=== PATIENT | female | born 2000 | race African-American/Black ===

== ENCOUNTER → 2018-10-23 | Outpatient (CLI) | payer MEDICAID ==
[2018-10-23 21:05] LABS: CHLAM PCR NOT DETECTED (NOT DETECT); GON PCR NOT DETECTED (NOT DETECT)
== END ==
LOC: LAB 19:22
PROVIDERS: ATTEND Nurse Practitioner Acute Care
DX: R30.0 Dysuria (principal)
CPT/HCPCS: 87086; 87088; 87186; 87491; 87591

== ENCOUNTER 2018-11-04 12:32 | Emergency (ER) | payer MEDICAID ==
[2018-11-04 12:37] VITALS: BP 122/72
--- NOTE | 2018-11-04 12:54 | ER Document Report ---
ED Medical Screen (RME) - General Chief Complaint: Anxiety Stated Complaint: POSSIBLE SEIZURE Time Seen by Provider: 11/04/18 12:48 Notes: Patient says that she thinks she may have had a seizure a couple of days ago. She says she was laying on the bed, awake, and began to feel "weird" and then started with twitching and jerking and then was jerking all over her body. Her male friend was in the shower and had gotten out of the shower and observe the end of what happened, but patient did not bring him with her. Patient has never had a seizure before. Yesterday, patient felt "panicky" but did not have any more of these episodes. Denies any headache. Denies any stiff neck. Denies any loss of control of bladder or bowels. Denies chewing her tongue. She says that she had not eaten any food or had any sleep for 2 days prior to this jerking episode. Patient was incarcerated on Tuesday and got out after 2 days, on , and then this event occurred. Patient says that she never lost consciousness during the jerking and was awake the entire time. Also she was able to carry on a conversation with her friend while having this jerking episode. Patient has ADHD and is supposed to take it daily, but had not been taking it f or 2 months until she took 1 pill Tuesday before she was incarcerated. She has not had any since then denies taking any other medications and denies any illicit drugs such as cocaine or methamphetamine. She wants to know if we have ome of those machines that we can measurement superintendent to her brain to tell if she has had a seizure. Informed her that we do not have them available to us in the emergency department. TRAVEL OUTSIDE OF THE [place] IN LAST 30 DAYS: No - Related Data Allergies/Adverse Reactions: No Known Allergies Allergy (Verified 08/03/18 13:43) Past Medical History - Immunizations Immunizations up to date: Yes Hx Diphtheria, Pertussis, Tetanus Vaccination: Yes Physical Exam - Vital signs Vitals: Temp Pulse Resp BP Pulse Ox 97.7 F 87 18 122/72 100 11/04/18 12:36 11/04/18 12:36 11/04/18 12:36 11/04/18 12:36 11/04/18 12:36 Course - Vital Signs Vital signs: Temp Pulse Resp BP Pulse Ox 97.7 F 87 18 122/72 100 11/04/18 12:36 11/04/18 12:36 11/04/18 12:36 11/04/18 12:36 11/04/18 12:36 Doctor's Discharge - Discharge Instructions: Anxiety ([facility]) Referrals: CÉSAR FERRER DO [Primary Care Provider] - Follow up as needed
--- NOTE | 2018-11-04 13:14 | ER Document Report ---
ED General - General Chief Complaint: Anxiety Stated Complaint: POSSIBLE SEIZURE Time Seen by Provider: 11/04/18 12:48 Mode of Arrival: Ambulatory Information source: Patient Notes: 18-year-old female presents the emergency department with complaints of possible anxiety versus a seizure that occurred a few days ago. Patient states that she was laying down on her bed to lying on her left side when she began feeling anxious and had a "weird" sensation in her feet. She states that it felt like pinpricks. She states that this sensation moved from her feet up her entire body. She states that she then began twitching all over her body. She was awake and conscious for this entire event. She states that her friend was in the shower when this started but he did observe what happened towards the end. Patient states that she was carrying on a complete conversation with her friend during the jerking episode. Patient denies a history of seizures. She states that she had not eaten any food or had sleep 2 days prior to this episode. She was incarcerated on Tuesday and got out 2 days afterwards. She states that this is when the event occurred. Patient denies any tongue biting, bowel or bladder incontinence. She admits to having a lot of stress in her life. Unsure if what she was experiencing was a panic attack. Patient states that she has used marijuana in the past but not denies any other illicit drugs. She does have a history of ADHD and occasionally takes Adderall. She states that she took a pill prior to incarceration. TRAVEL OUTSIDE OF THE [place] IN LAST 30 DAYS: No - HPI Onset: Last week Onset/Duration: Sudden Quality of pain: No pain Severity: None Pain Level: Denies Associated symptoms: None Exacerbated by: Denies Relieved by: Denies Similar symptoms previously: No Recently seen / treated by doctor: No - Related Data Allergies/Adverse Reactions: No Known Allergies Allergy (Verified 08/03/18 13:43) Past Medical History - General Information source: Patient - Social History Smoking Status: Current Every Day Smoker Chew tobacco use (# tins/day): No Frequency of alcohol use: None Drug Abuse: Marijuana Family History: Reviewed & Not Pertinent Patient has suicidal ideation: No Patient has homicidal ideation: No Renal/ Medical History: Denies: Hx Peritoneal Dialysis Psychiatric Medical History: Reports: Hx Attention Deficit Hyperactivity Disorder - Immunizations Immunizations up to date: Yes Hx Diphtheria, Pertussis, Tetanus Vaccination: Yes Review of Systems - Review of Systems Constitutional: No symptoms reported EENT: No symptoms reported Cardiovascular: No symptoms reported Respiratory: No symptoms reported Gastrointestinal: No symptoms reported Genitourinary: No symptoms reported Female Genitourinary: No symptoms reported Musculoskeletal: No symptoms reported Skin: No symptoms reported Neurological/Psychological: Tremor -: Yes All other systems reviewed and negative Physical Exam - Vital signs Vitals: Temp Pulse Resp BP Pulse Ox 97.7 F 87 18 122/72 100 11/04/18 12:36 11/04/18 12:36 11/04/18 12:36 11/04/18 12:36 11/04/18 12:36 - Notes Notes: PHYSICAL EXAMINATION: GENERAL: Well-appearing, well-nourished and in no acute distress. HEAD: Atraumatic, normocephalic. EYES: Pupils equal round and reactive to light, extraocular movements intact, conjunctiva are normal. ENT: Nares patent, oropharynx clear without exudates. Moist mucous membranes. NECK: Normal range of motion, supple without lymphadenopathy LUNGS: Breath sounds clear to auscultation bilaterally and equal. No wheezes rales or rhonchi. HEART: Regular rate and rhythm without murmurs ABDOMEN: Soft, nontender, nondistended abdomen. No guarding, no rebound. No masses appreciated. Female : deferred Musculoskeletal: Normal range of motion, no pitting or edema. No cyanosis. NEUROLOGICAL: Cranial nerves grossly intact. Normal speech, normal gait. Normal sensory, motor exams PSYCH: Normal mood, normal affect. SKIN: Warm, Dry, normal turgor, no rashes or lesions noted. Course - Re-evaluation Re-evalutation: 11/04/18 14:39 Labs obtained. No acute process identified. Patient likely had a panic attack. I instructed the patient to follow-up with the primary care physician this week and to return for worsening symptoms. 11/04/18 14:42 - Vital Signs Vital signs: Temp Pulse Resp BP Pulse Ox 97.7 F 87 18 122/72 100 11/04/18 12:36 11/04/18 12:36 11/04/18 12:36 11/04/18 12:36 11/04/18 12:36 - Laboratory Result Diagrams: 11/04/18 12:57 11/04/18 12:57 Laboratory results interpreted by me: 11/04/18 11/04/18 12:57 13:45 WBC 3.1 L Absolute Neutrophils 1.5 L Urine Protein >=500 H Discharge - Discharge Clinical Impression: Panic attack Condition: Good Disposition: HOME, SELF-CARE Instructions: Anxiety ([facility]), Panic Attack ([facility]) Referrals: CÉSAR FERRER DO [NO LOCAL MD] - Follow up as needed
[2018-11-04 13:15] LABS: ABSOLUTE EOSINOPHILS # (AUTO) 0.1 10^3/uL (0.0-0.6); ABSOLUTE LYMPHOCYTES (AUTO) 1.3 10^3/uL (0.5-4.7); ABSOLUTE MONOCYTES (AUTO) 0.2 10^3/uL (0.1-1.4); ABSOLUTE NEUT (AUTO) 1.5 10^3/uL (1.7-8.2); BASOPHILS % (AUTO) 0.5 % (0-2); EOSINOPHILS % (AUTO) 1.8 % (0-6); HEMATOCRIT 38.4 % (36.0-47.0); HEMOGLOBIN 12.6 g/dL (12.0-15.5); LYMPHOCYTES % (AUTO) 42.2 % (13-45); MEAN CORPUSCULAR HEMOGLOBIN 28.2 pg (27.0-33.4); MEAN CORPUSCULAR HGB CONC 32.7 g/dL (32.0-36.0); MEAN CORPUSCULAR VOLUME 86 fl (80-97); PLATELET COUNT 209 10^3/uL (150-450); RED BLOOD COUNT 4.46 10^6/uL (3.72-5.28); RED CELL DISTRIBUTION WIDTH 13.6 % (11.5-14.0); SEGMENTED NEUTROPHILS % (AUTO) 48.5 % (42-78); TOTAL CELLS COUNTED % (AUTO) 100 %; WHITE BLOOD COUNT 3.1 10^3/uL (4.0-10.5)
[2018-11-04 13:29] LABS: ALANINE AMINOTRANSFERASE 21 U/L (9-52); ALBUMIN 4.9 g/dL (3.5-5.0); ALKALINE PHOSPHATASE 39 U/L (38-126); ANION GAP 10 (5-19); ASPARTATE AMINO TRANSFERASE 15 U/L (14-36); BILIRUBIN,DIRECT 0.2 mg/dL (0.0-0.4); BILIRUBIN,TOTAL 0.6 mg/dL (0.2-1.3); BLOOD UREA NITROGEN 11 mg/dL (7-20); CALCIUM 9.8 mg/dL (8.4-10.2); CARBON DIOXIDE 27 mmol/L (22-30); CHLORIDE 105 mmol/L (98-107); GLUCOSE 91 mg/dL (75-110); POTASSIUM 4.2 mmol/L (3.6-5.0); SODIUM 141.8 mmol/L (137-145); TOTAL PROTEIN 7.4 g/dL (6.3-8.2)
[2018-11-04 14:15] LABS: APPEARANCE,URINE SLIGHTLY-CLOUDY; BILIRUBIN,URINE NEGATIVE (NEGATIVE); COLOR,URINE YELLOW; GLUCOSE, URINE NEGATIVE (NEGATIVE); KETONES,URINE NEGATIVE (NEGATIVE); LEUKOCYTE ESTERASE,URINE NEGATIVE (NEGATIVE); NITRITE,URINE NEGATIVE (NEGATIVE); PROTEIN,URINE >=500 mg/dL (NEGATIVE); URINE SPECIFIC GRAVITY 1.022; UROBILINOGEN,URINE NEGATIVE mg/dL (<2.0)
[2018-11-04 14:29] LABS: URINE AMPHETAMINES SCREEN NEGATIVE; URINE BARBITURATES SCREEN NEGATIVE; URINE BENZODIAZEPINES SCREEN NEGATIVE; URINE COCAINE SCREEN NEGATIVE; URINE MARIJUANA (THC) SCREEN UNCONFIRMED POSITIVE; URINE METHADONE SCREEN NEGATIVE; URINE PHENCYCLIDINE SCREEN NEGATIVE
== END 2018-11-04 15:23 | disposition home or self-care (01) ==
LOC: ER 12:32 → MERGE 12:32 → ER 15:23
DX: F41.0 Panic disorder [episodic paroxysmal anxiety] (principal); F90.9 Attention-deficit hyperactivity disorder, unspecified type; R25.1 Tremor, unspecified; F17.200 Nicotine dependence, unspecified, uncomplicated; F12.10 Cannabis abuse, uncomplicated
CPT/HCPCS: 36415; 80053; 80307; 81001; 83735; 84703; 85025; 99283

== ENCOUNTER 2018-12-08 16:39 | Emergency (ER) | payer MEDICAID, OTHER ==
[2018-12-08] MEDS ORDERED: NAPROXEN 250 MG TABLET PO ONE (17:43)
--- NOTE | 2018-12-08 18:06 | ER Document Report ---
ED General - General Chief Complaint: Weakness Stated Complaint: HAND PAIN, FATIGUE Time Seen by Provider: 12/08/18 17:29 Primary Care Provider: [facility] [Provider Group] - Follow up as needed LLUVIA ALTAMIRANO MD [ACTIVE STAFF] - Follow up in 3-5 days TAMARA ALEX MD [ACTIVE STAFF] - Follow up in 3-5 days Notes: Patient is a 18-year-old female that presents to the emergency department for chief complaint of generalized fatigue, and bilateral hand pain. Patient states she is been having on and off cramping in her hands over the past several months, and seemingly becoming more frequent, she has had generalized fatigue, and some lightheadedness associated. She mainly feels the pain after using her hands for repetitive motion such as texting, playing video games, or at her work. She currently rates the pain as a 2 out of 10 describes as aching sensation in the joints of her hands. She does occasionally feel pain go up into her wrist associated with this. Denies prior history of lupus rheumatoid arthritis or other arthropathies. Previously healthy. No other complaints at this time. She denies recent fevers, chills, rashes, shortness of breath, chest pain or difficulty breathing. Past Medical History: Denies chronic medical conditions Past Surgical History: Denies surgical history Social History: Denies tobacco, alcohol or drug use. Family History: Reviewed and noncontributory for presenting illness Allergies: Reviewed, see documented allergy list. REVIEW OF SYSTEMS: Other than noted above, the 12 point review of systems was reviewed with the patient and were negative, all pertinent findings are included in the HPI. PHYSICAL EXAMINATION: Vital signs reviewed, nursing noted reviewed. GENERAL: Well-appearing, well-nourished and in no acute distress. HEAD: Atraumatic, normocephalic. EYES: Eyes appear normal, extraocular movements intact, sclera anicteric, conjunctiva are normal. ENT: nares patent, oropharynx clear without exudates. Moist mucous membranes. NECK: Normal range of motion, supple without lymphadenopathy LUNGS: Breath sounds clear to auscultation bilaterally and equal. No wheezes rales or rhonchi. HEART: Regular rate and rhythm without murmurs ABDOMEN: Soft, nontender, normoactive bowel sounds. No rebound, guarding, or rigidity. No masses appreciated. EXTREMITIES: Nontender, good range of motion, no pitting or edema. Negative Tinel's and Abbe testing bilaterally, the joints of the hands are nontender at this time, and not particularly swollen or edematous. NEUROLOGICAL: No focal neurological deficits. Moves all extremities spontaneously Motor and sensory grossly intact on exam. PSYCH: Normal mood, normal affect. SKIN: Warm, Dry, normal turgor, no rashes or lesions noted on exposed skin TRAVEL OUTSIDE OF THE [place] IN LAST 30 DAYS: No - Related Data Allergies/Adverse Reactions: No Known Allergies Allergy (Verified 12/08/18 16:45) Past Medical History - Social History Smoking Status: Unknown if Ever Smoked Family History: Reviewed & Not Pertinent Patient has suicidal ideation: No Patient has homicidal ideation: No Renal/ Medical History: Denies: Hx Peritoneal Dialysis Psychiatric Medical History: Reports: Hx Attention Deficit Hyperactivity Disor [place] - Immunizations Immunizations up to date: Yes Hx Diphtheria, Pertussis, Tetanus Vaccination: Yes Physical Exam - Vital signs Vitals: Temp Pulse Resp BP Pulse Ox 98.8 F 89 16 114/70 97 12/08/18 16:47 12/08/18 16:47 12/08/18 16:47 12/08/18 16:47 12/08/18 16:47 Course - Re-evaluation Re-evalutation: Patient seen and examined vital signs reviewed. Laboratory data and imaging were ordered as appropriate for the patient's presenting symptoms and complaint, with consideration of any critical or life threatening conditions that may be associated with their obtained history and exam as noted above. Patient was treated with naproxen 500 mg Results were reviewed when available and demonstrated unremarkable blood work, patient did have a mild leukopenia, compared with prior, not significantly changed, there was normal ESR and CRP, likelihood of rheumatoid arthritis or other autoimmune condition is low based on this, but did recommend follow-up with her primary care. The patient was re-evaluated and was stable and improved Evaluation was most consistent with hand pain, not consistent with carpal tunnel, or de Quervain's tenosynovitis, will have her follow-up with her primary care, for further evaluation if needed, given prescription for naproxen patient agreeable to plan of care. Results were discussed with the patient at this point, after careful consid eration I feel that that patient can be discharged from the emergency department, the patient was educated treatments and reasons to return to the emergency department based on their presumed diagnosis as noted above, they were advised to followup with a primary care physician in 2-3 days. Patient was agreeable to plan of care. *Note is created using voice recognition software and may contain spelling, syntax or grammatical errors. Laboratory 12/08/18 12/08/18 18:01 18:01 WBC 3.3 L RBC 4.55 Hgb 12.9 Hct 38.7 MCV 85 MCH 28.5 MCHC 33.4 RDW 13.7 Plt Count 234 Seg Neutrophils % 40.3 L Lymphocytes % 49.8 H Monocytes % 7.2 Eosinophils % 2.3 Basophils % 0.4 Absolute Neutrophils 1.3 L Absolute Lymphocytes 1.7 Absolute Monocytes 0.2 Absolute Eosinophils 0.1 Absolute Basophils 0.0 ESR 4 Sodium 139.8 Potassium 4.6 Chloride 102 Carbon Dioxide 28 Anion Gap 10 BUN 16 Creatinine 0.84 Est GFR ( Amer) > 60 Est GFR (Non-Af Amer) > 60 Glucose 90 Calcium 10.1 C-Reactive Protein < 5.0 - Vital Signs Vital signs: Temp Pulse Resp BP Pulse Ox 98.8 F 89 16 114/70 97 12/08/18 16:47 12/08/18 16:47 12/08/18 16:47 12/08/18 16:47 12/08/18 16:47 - Laboratory Result Diagrams: 12/08/18 18:01 12/08/18 18:01 Laboratory results interpreted by me: 12/08/18 18:01 WBC 3.3 L Seg Neutrophils % 40.3 L Lymphocytes % 49.8 H Absolute Neutrophils 1.3 L Discharge - Discharge Clinical Impression: Hand pain Qualifiers: Laterality: bilateral Qualified Code(s): M79.641 - Pain in right hand Fatigue Qualifiers: Fatigue type: unspecified Qualified Code(s): R53.83 - Other fatigue Condition: Stable Disposition: HOME, SELF-CARE Additional Instructions: Take the prescribed anti-inflammatory medication naproxen 500 mg twice daily for the next several days, to try to help with the cramping in her hands, avoid repetitive activities as much as possible, to give her hands at rest. Your blood work was unremarkable, did not demonstrate signs or concerns for conditions such as lupus or rheumatoid arthritis, however you should follow-up with the primary care physician, as further testing may be needed, several have been listed with your paperwork. Prescriptions: Naproxen 500 mg PO BID #30 tablet.dr Forms: Return to Work Referrals: LLUVIA ALTAMIRANO MD [ACTIVE STAFF] - Follow up in 3-5 days TAMARA ALEX MD [ACTIVE STAFF] - Follow up in 3-5 days [facility] [Provider Group] - Follow up as needed
[2018-12-08 18:22] LABS: ABSOLUTE EOSINOPHILS # (AUTO) 0.1 10^3/uL (0.0-0.6); ABSOLUTE LYMPHOCYTES (AUTO) 1.7 10^3/uL (0.5-4.7); ABSOLUTE MONOCYTES (AUTO) 0.2 10^3/uL (0.1-1.4); ABSOLUTE NEUT (AUTO) 1.3 10^3/uL (1.7-8.2); BASOPHILS % (AUTO) 0.4 % (0-2); EOSINOPHILS % (AUTO) 2.3 % (0-6); HEMATOCRIT 38.7 % (36.0-47.0); HEMOGLOBIN 12.9 g/dL (12.0-15.5); LYMPHOCYTES % (AUTO) 49.8 % (13-45); MEAN CORPUSCULAR HEMOGLOBIN 28.5 pg (27.0-33.4); MEAN CORPUSCULAR HGB CONC 33.4 g/dL (32.0-36.0); MEAN CORPUSCULAR VOLUME 85 fl (80-97); MONOCYTES % (AUTO) 7.2 % (3-13); PLATELET COUNT 234 10^3/uL (150-450); RED BLOOD COUNT 4.55 10^6/uL (3.72-5.28); RED CELL DISTRIBUTION WIDTH 13.7 % (11.5-14.0); SEGMENTED NEUTROPHILS % (AUTO) 40.3 % (42-78); TOTAL CELLS COUNTED % (AUTO) 100 %; WHITE BLOOD COUNT 3.3 10^3/uL (4.0-10.5)
[2018-12-08 18:39] LABS: ANION GAP 10 (5-19); BLOOD UREA NITROGEN 16 mg/dL (7-20); CALCIUM 10.1 mg/dL (8.4-10.2); CARBON DIOXIDE 28 mmol/L (22-30); CHLORIDE 102 mmol/L (98-107); GLUCOSE 90 mg/dL (75-110); POTASSIUM 4.6 mmol/L (3.6-5.0); SODIUM 139.8 mmol/L (137-145)
[2018-12-08 19:15] LABS: ERYTHROCYTE SEDIMENTATION RATE 4 mm/hr (0-20)
[2018-12-08 19:19] LABS: C-REACTIVE PROTEIN < 5.0 mg/L (<10.0)
[2018-12-08 19:41] VITALS: BP 112/69
== END 2018-12-08 19:41 | disposition home or self-care (01) ==
LOC: ER 16:39
DX: M79.642 Pain in left hand (principal); M79.641 Pain in right hand; R53.83 Other fatigue
CPT/HCPCS: 99284; 36415; 85025; 85652; 86140; 80048; J3490

== ENCOUNTER 2019-05-12 20:26 | Emergency (ER) | payer MEDICAID ==
[2019-05-12 20:34] VITALS: BP 111/66
--- NOTE | 2019-05-12 21:54 | ER Document Report ---
ED Neck/Back Problem - General Chief Complaint: Back Pain Stated Complaint: BACK AND NECK PAIN Time Seen by Provider: 05/12/19 21:37 Primary Care Provider: [facility] [Provider Group] - Follow up as needed Mode of Arrival: Ambulatory Information source: Patient Notes: 19-year-old female presented to ED for complaint of upper back and neck pain. She states she has not fallen she has not injured her neck or back today. She states the pain started while she was bathing her child. She states that her boyfriend noticed there was a dent in her upper back and she thinks she might of broken something in her back. She did not fall at this time. She states she has been thrown on her child's toys in the past but not today. She states she thinks her pain is because she was laying in a recliner way while she had her epidural for her childbirth and this is why her pain is present today. TRAVEL OUTSIDE OF THE [place] IN LAST 30 DAYS: No - HPI Patient complains to provider of: Pain, Neck, Upper back Onset: This evening Where: Home Onset: Sudden Timing: Still present - While bathing her child Quality of pain: Achy Severity: Mild Pain Level: 2 Context: Lifting Recent injury: No Associated symptoms: Other - Neck and upper back Exacerbated by: Movement of neck Relieved by: Nothing Similar symptoms previously: Yes Recently seen / treated by doctor: No - Related Data Allergies/Adverse Reactions: No Known Allergies Allergy (Verified 12/08/18 16:45) Past Medical History - General Information source: Patient - Social History Smoking Status: Never Smoker Cigarette use (# per day): No Chew tobacco use (# tins/day): No Frequency of alcohol use: None Drug Abuse: None Lives with: Parents Family History: Reviewed & Not Pertinent Patient has suicidal ideation: No Patient has homicidal ideation: No - Past Medical History Cardiac Medical History: Reports: None Pulmonary Medical History: Reports: None EENT Medical History: Reports: None Neurological Medical History: Reports: None Endocrine Medical History: Reports: None Renal/ Medical History: Reports: None Malignancy Medical History: Reports: None GI Medical History: Reports: None Musculoskeletal Medical History: Reports None Skin Medical History: Reports None Psychiatric Medical History: Reports: Hx Anxiety, Hx Attention Deficit H yperactivity Disorder, Hx Depression Traumatic Medical History: Reports: None Infectious Medical History: Reports: None Surgical Hx: Negative - Immunizations Immunizations up to date: Yes Hx Diphtheria, Pertussis, Tetanus Vaccination: Yes Review of Systems - Review of Systems Constitutional: No symptoms reported EENT: No symptoms reported Cardiovascular: No symptoms reported Respiratory: No symptoms reported Gastrointestinal: No symptoms reported Genitourinary: No symptoms reported Female Genitourinary: No symptoms reported Musculoskeletal: Back pain - Right paraspinous pain, Muscle pain, Muscle stiffness, Neck pain - Right paraspinous pain Skin: No symptoms reported Hematologic/Lymphatic: No symptoms reported Neurological/Psychological: No symptoms reported -: Yes All other systems reviewed and negative Physical Exam - Vital signs Vitals: Temp Pulse Resp BP Pulse Ox 97.7 F 88 20 111/66 97 05/12/19 20:32 05/12/19 20:32 05/12/19 20:32 05/12/19 20:32 05/12/19 20:32 Interpretation: Normal - General General appearance: Appears well, Alert - HEENT Head: Normocephalic, Atraumatic Eyes: Normal Pupils: PERRL - Respiratory Respiratory status: No respiratory distress Chest status: Nontender Breath sounds: Normal Chest palpation: Normal - Cardiovascular Rhythm: Regular Heart sounds: Normal auscultation Murmur: No - Abdominal Inspection: Normal Distension: No distension Bowel sounds: Normal Tenderness: Nontender Organomegaly: No organomegaly - Back Back: Normal, Tender - right paraspinous pain - Extremities General upper extremity: Normal inspection, Nontender, Normal color, Normal ROM, Normal temperature General lower extremity: Normal inspection, Nontender, Normal color, Normal ROM, Normal temperature, Normal weight bearing. No: Ludy's sign - Neurological Neuro grossly intact: Yes Cognition: Normal Orientation: AAOx4 [place] Coma Scale Eye Opening: Spontaneous [place] Coma Scale Verbal: Oriented [place] Coma Scale Motor: Obeys Commands [place] Coma Scale Total: 15 Speech: Normal Motor strength normal: LUE, RUE, LLE, RLE Sensory: Normal - Psychological Associated symptoms: Normal affect, Normal mood - Skin Skin Temperature: Warm Skin Moisture: Dry Skin Color: Normal Course - Re-evaluation Re-evalutation: 05/12/19 22:[address] Tovar due to patient's insistence that she needs a MRI for her pain to the right paraspinous area. Dr. Tovar stated she could have an x-ray if she would like an x-ray but it will not show anything but broken bones as I have already explained to the patient numerous times. Patient refused any kind of medication I did give her name and number for [facility] for surgery for follow-up. Patient states she does not want the x-ray at this time. She refused Tylenol, she refused Motrin, she refused muscle relaxers. I did give her instructions on shoulder exercises ice warm packs and Tylenol and Motrin. Patient was discharged home - Vital Signs Vital signs: Temp Pulse Resp BP Pulse Ox 97.7 F 88 20 111/66 97 05/12/19 20:32 05/12/19 20:32 05/12/19 20:32 05/12/19 20:32 05/12/19 20:32 Discharge - Discharge Clinical Impression: Neck pain, Upper back pain Condition: Stable Disposition: HOME, SELF-CARE Instructions: Exercise Program for the Shoulder ([facility]) Additional Instructions: You were seen today for pain in your upper back and your neck while your pain ba by and the child You deny any fall or injury today. I have offered you Toradol ibuprofen Tylenol or muscle relaxers for this area. You states she thinks you injured your back when you had your epidural for your child and that is why your back and upper neck hurts at this time. You do not have any fever or any signs or symptoms of any type of infection. You have stated you do not want any medications you want to see somebody who will do an MRI to see if you have injured your back at some time in the past. Acetaminophen Acetaminophen may be taken for pain relief or fever control. It's much safer than aspirin, offering a wider range of "safe" dosages. It is safe during . Some brand names are Tylenol, Panadol, Datril, Anacin 3, Tempra, and Liquiprin. Acetaminophen can be repeated every four hours. The following are maximum recommended dosages: WEIGHT Dose Drops Elixir Chewable(80mg) (LBS.) drprs=droppers tsp=teaspoon 6 40 mg .4 ml (1/2) 6-11 80 mg .8 ml (full) 1/2 tsp 1 tab 12-16 120 mg 1 1/2 drprs 3/4 tsp 1 1/2 tabs 17-23 160 mg 2 drprs 1 tsp 2 tabs 24-30 240 mg 3 drprs 1 1/2 tsp 3 tabs 30-35 320 mg 2 tsp 4 tabs 36-41 360 mg 2 1/4 tsp 4 1/2 tabs 42-47 400 mg 2 1/2 tsp 5 tabs 48-53 480 mg 3 tsp 6 tabs 54-59 520 mg 3 1/4 tsp 6 1/2 tabs 60-64 560 mg 3 1/2 tsp 7 tabs 65-70 600 mg 3 3/4 tsp 7 1/2 tabs 71-76 640 mg 4 tsp 8 tabs 77-82 720 mg 4 1/2 tsp 9 tabs 83-88 800 mg 5 tsp 10 tabs >89 pounds or adults 650 mg to 900 mg Acetaminophen can be repeated every four hours. Maximum daily dose not to exceed 4000 mg. These maximum recommended dosages are slightly higher than the dosages written on the product container, but these dosages are very safe and well below the toxic dosage for acetaminophen. Ibuprofen Ibuprofen is an excellent, safe drug for pain control. In addition, it has potent antiinflammatory effects which are beneficial, especially in the treatment of injuries, arthritis, or tendonitis. It's best to take ibuprofen with food. Persons with ulcer disease or allergy to aspirin should notify their physician of this before taking ibuprofen. Take the medication exactly as prescribed. Don't take additional doses unless instructed to do so by your doctor. If you develop wheezing, shortness of breath, hives, faintness, stomach pain, vomiting, or dark black stools, return for re-evaluation at once. Ice Packs Apply ice packs frequently against the painful area. Many different schedules are recommended, such as "20 minutes on, 20 minutes off" or "one hour ice, two hours rest." If you need to work, you may need to go longer between ice treatments. You should plan to have the area ice packed AT LEAST one fourth of the time. The ice should be applied over the wrap, tape, or splint, or over a layer of cloth -- not directly against the skin. Some ice bags have a built-in cloth and can be put directly on the skin. Warm Packs After approximately two days, apply gentle heat (such as a heating pad or hot water bottle) for about 20 to 30 minutes about every two hours -- at least four times daily. Warmth and elevation will help you make a more rapid recovery, and will ease the pain considerably. Do not use HOT heat, and never apply heat for longer than 30 minutes. The continuous heat can invisibly damage skin and muscles -- even when no burn is seen on the surface. Damaged muscles can make you MORE sore. FOLLOW-UP CARE: If you have been referred to a physician for follow-up care, call the physicians office for an appointment as you were instructed or within the next two days. If you experience worsening or a significant change in your symptoms, notify the physician immediately or return to the Emergency Department at any time for re-evaluation. Forms: Return to Work Referrals: [facility] ([facility]) [Provider Group] - Follow up as needed
== END 2019-05-12 22:15 | disposition home or self-care (01) ==
LOC: ER 20:26
DX: M54.2 Cervicalgia (principal); M54.9 Dorsalgia, unspecified; M79.10 Myalgia, unspecified site
CPT/HCPCS: 99283

== ENCOUNTER 2020-03-21 07:10 | Emergency (ER) | payer MEDICAID ==
[2020-03-21] MEDS ORDERED: LIDOCAINE 5% (700 MG) TRANSDERMAL ADH..PATCH TP ONE (08:29)
--- NOTE | 2020-03-21 09:33 | RADIOLOGY REPORT (SQ) ---
EXAM DESCRIPTION: CHEST 2 VIEWS IMAGES COMPLETED DATE/TIME: 03/21/2020 9:03 am REASON FOR STUDY: L thoracic back pain COMPARISON: None. TECHNIQUE: Frontal and lateral radiographic views of the chest acquired. NUMBER OF VIEWS: Two view. LIMITATIONS: None. FINDINGS: LUNGS AND PLEURA: No opacities, masses or pneumothorax. No pleural effusion. MEDIASTINUM AND HILAR STRUCTURES: No masses or contour abnormalities. HEART AND VASCULAR STRUCTURES: Heart normal size. No evidence for failure. BONES: Very slight scoliotic curve in the thoracic region. No fracture or bone lesion detected. HARDWARE: None in the chest. OTHER: No other significant finding. IMPRESSION: No acute or suspicious thoracic abnormality. Slight scoliosis. TECHNICAL DOCUMENTATION: JOB ID: [id number] 2010 [employer]- All Rights Reserved Reading location - IP/workstation name: [email or web address]
--- NOTE | 2020-03-21 09:47 | ER Document Report ---
HPI - HPI Patient complains to provider of: Upper back pain Time Seen by Provider: 03/21/20 08:11 Onset: Yesterday Onset/Duration: Gradual Quality of pain: Achy Pain Level: 4 Context: Patient presents complaining of left upper back pain since yesterday. Patient states she did have an injury a year ago but denies any recent injury. Patient denies any cough or cold symptoms. Patient denies any fever. Associated Symptoms: denies: Nonproductive cough, Fever, Nausea Exacerbated by: Movement Relieved by: Denies Similar symptoms previously: Yes Recently seen / treated by doctor: No - ROS ROS below otherwise negative: Yes Systems Reviewed and Negative: Yes All other systems reviewed and negative - CONSTITUTIONAL Constitutional: DENIES: Fever - NEURO Neurology: DENIES: Headache, Weakness - CARDIOVASCULAR Cardiovascular: DENIES: Chest pain - RESPIRATORY Respiratory: REPORTS: Coughing. DENIES: Trouble Breathing - GASTROINTESTINAL Gastrointestinal: DENIES: Nausea, Patient vomiting - REPRODUCTIVE Reproductive: DENIES: : - MUSCULOSKELETAL Musculoskeletal: REPORTS: Back Pain - DERM Skin Color: Normal Skin Problems: None Past Medical History - General Information source: Patient - Social History Smoking Status: Never Smoker Frequency of alcohol use: None Drug Abuse: None Occupation: None Lives with: Family Family History: Reviewed & Not Pertinent Patient has homicidal ideation: No Renal/ Medical History: Denies: Hx Peritoneal Dialysis Musculoskeletal Medical History: Reports Hx Arthritis - Back pain, neck pain Psychiatric Medical History: Reports: Hx Anxiety, Hx Attention Deficit Hyperactivity Disorder, Hx Depression Surgical Hx: Negative - Immunizations Immunizations up to date: Yes Hx Diphtheria, Pertussis, Tetanus Vaccination: Yes Vertical Provider Document - CONSTITUTIONAL Agree With Documented VS: Yes Exam Limitations: No Limitations General Appearance: WD/WN, No Apparent Distress - INFECTION CONTROL TRAVEL OUTSIDE OF THE [place] IN LAST 30 DAYS: No - HEENT HEENT: Atraumatic, Normocephalic - NECK Neck: Normal Inspection, Supple. negative: Lymphadenopathy-Left, Lymphadenopathy-Right - RESPIRATORY Respiratory: Breath Sounds Normal, No Respiratory Distress, Chest Non-Tender - CARDIOVASCULAR Cardiovascular: Regular Rate, Regular Rhythm, No Murmur - BACK Back: Abnormal Inspection - Left thoracic paraspinal muscle tenderness at the level of T7-8, no midline tenderness - MUSCULOSKELETAL/EXTREMETIES Musculoskeletal/Extremeties: MAEW, FROM, Non-Tender - NEURO Level of Consciousness: Awake, Alert, Appropriate Motor/Sensory: No Motor Deficit, No Sensory Deficit - DERM Integumentary: Warm, Dry Course - Re-evaluation Re-evalutation: 03/21/20 09:56 Patient's x-ray reviewed, no concern for any pneumonia, patient does have incidental findings worrisome for scoliosis. We will treat for musculoskeletal back pain at this time. The patient presents with back pain without signs of spinal cord compression, cauda equina syndrome, infection, aneurysm, or other serious etiology. The patient is neurologically intact. Given the extremely risk of these diagnoses further testing and evaluation for these possibilities does not appear to be indicated at this time. Patient has been instructed to return if the symptoms worsen or change in any way. - Vital Signs Vital signs: Temp Pulse Resp BP Pulse Ox 98.1 F 103 H 16 127/90 H 97 03/21/20 07:17 03/21/20 07:14 03/21/20 07:14 03/21/20 07:14 03/21/20 07:14 - Diagnostic Test Radiology reviewed: Image reviewed, Reports reviewed Discharge - Discharge Clinical Impression: Upper back pain on left side Scoliosis Qualifiers: Scoliosis type: unspecified scoliosis Spinal region: unspecified Qualified Code(s): M41.9 - Scoliosis, unspecified Condition: Stable Disposition: HOME, SELF-CARE Instructions: Ice Packs ([facility]), Upper Back Strain ([facility]), Warm Packs ([facility]) Additional Instructions: Return immediately for any new or worsening symptoms Followup with your primary care provider, call tomorrow to make a followup appointment Prescriptions: Cyclobenzaprine HCl [Flexeril 10 Mg Tablet] 10 mg PO TID #15 tablet Lidocaine [Lidoderm 5% (700 mg) Transdermal Patch] 1 patch TP DAILY PRN #10 adh..patch PRN Reason: Naproxen [Naprosyn 250 Nmg Tablet] 1 tab PO BID #14 tablet Referrals: CÉSAR FERRER DO [Primary Care Provider] - Follow up tomorrow [facility] [Provider Group] - Follow up as needed [facility] [Provider Group] - Follow up as needed
[2020-03-21] MEDS ORDERED: HYDROCODONE/ACETAMINOPHEN 5-325 MG TABLET PO ONE (10:05)
[2020-03-21 10:13] VITALS: BP 132/81
== END 2020-03-21 10:14 | disposition home or self-care (01) ==
LOC: ER 07:10
DX: M54.9 Dorsalgia, unspecified (principal); M41.9 Scoliosis, unspecified
CPT/HCPCS: 99283; 71046; J3490

== ENCOUNTER 2020-09-12 13:09 | Emergency (ER) | payer MEDICAID ==
--- NOTE | 2020-09-12 15:15 | ER Document Report ---
ED Medical Screen (RME) - General Chief Complaint: Neck Problem Stated Complaint: NECK PAIN,ARM PAIN Time Seen by Provider: 09/12/20 15:13 Primary Care Provider: CÉSAR FERRER DO [Primary Care Provider] - Follow up as needed Mode of Arrival: Ambulatory Information source: Patient Notes: 20-year-old female presents to ED for complaint of pain on the left side of her neck. She states has been there for couple years and it comes and goes. She is sure she has a blood clot in the left side of her neck. There is no obvious reason history of anything that would make me suspect a blood clot on the left side of her neck. She also has a little bruise on her right eye lid. She states that been there for 2 years off and on sometimes it hurts sometimes it does not. She states she thinks she has got blood clots in her face and her neck and would like to be evaluated for those. I have not ordered any testing is at this time as I do not think any are relevant at this time. I have greeted and performed a rapid initial assessment of this patient. A comprehensive ED assessment and evaluation of the patient, analysis of test results and completion of medical decision making process will be conducted by an additional ED providers. TRAVEL OUTSIDE OF THE [place] IN LAST 30 DAYS: No - Related Data Allergies/Adverse Reactions: No Known Allergies Allergy (Verified 03/21/20 07:17) Home Medications: anti-depressant (going to start) Past Medical History - Social History Chew tobacco use (# tins/day): No Frequency of alcohol use: None Drug Abuse: None Renal/ Medical History: Denies: Hx Peritoneal Dialysis Musculoskeltal Medical History: Reports Hx Arthritis - Back pain, neck pain Psychiatric Medical History: Reports: Hx Anxiety, Hx Attention Deficit Hyperactivity Disorder, Hx Depression - Immunizations Immunizations up to date: Yes Hx Diphtheria, Pertussis, Tetanus Vaccination: Yes Physical Exam - Vital signs Vitals: Temp Pulse Resp BP Pulse Ox 98.3 F 96 16 110/87 H 100 09/12/20 14:08 09/12/20 14:08 09/12/20 14:08 09/12/20 14:08 09/12/20 14:08 Course - Vital Signs Vital signs: Temp Pulse Resp BP Pulse Ox 98.3 F 96 16 110/87 H 100 09/12/20 14:08 09/12/20 14:08 09/12/20 14:08 09/12/20 14:08 09/12/20 14:08 Doctor's Discharge - Discharge Referrals: CÉSAR FERRER DO [Primary Care Provider] - Follow up as needed
--- NOTE | 2020-09-12 17:41 | ER Document Report ---
ED Neck/Back Problem - General Chief Complaint: Neck Problem Stated Complaint: NECK PAIN,ARM PAIN Time Seen by Provider: 09/12/20 15:13 Primary Care Provider: CÉSAR FERRER DO [Primary Care Provider] - Follow up in 3-5 days Mode of Arrival: Ambulatory TRAVEL OUTSIDE OF THE [place] IN LAST 30 DAYS: No - HPI Notes: Patient is a 20-year-old female with a past medical history of depression who presents with multiple complaints. She states she has had about 4 years of off and on left-sided neck tightness. She states it is worse with moving her neck. She has never had this evaluated. Patient also states she has a spot above her right eye that has also been there for many years and she is not sure what it is. It looks like a small bruise but she denies any injury. Currently, she denies any complaints. Not seen her family doctor for this yet. Denies any chest pain or shortness of breath. No fevers or chills. No sore throat. No HEENT symptoms. No headache currently. - Related Data Allergies/Adverse Reactions: No Known Allergies Allergy (Verified 09/12/20 15:13) Home Medications: anti-depressant (going to start) Past Medical History - General Information source: Patient - Social History Smoking Status: Never Smoker Chew tobacco use (# tins/day): No Frequency of alcohol use: None Drug Abuse: None Family History: Reviewed & Not Pertinent Renal/ Medical History: Denies: Hx Peritoneal Dialysis Musculoskeletal Medical History: Reports Hx Arthritis - Back pain, neck pain Psychiatric Medical History: Reports: Hx Anxiety, Hx Attention Deficit Hyperactivity Disorder, Hx Depression - Immunizations Immunizations up to date: Yes Hx Diphtheria, Pertussis, Tetanus Vaccination: Yes Review of Systems - Review of Systems Notes: CONSTITUTIONAL: No fever, fatigue or weight loss. SKIN: No rash. HENT: No congestion, ear pain, or sore throat. EYES: No recent vision problems or eye pain. CARDIOVASCULAR: No chest pain or edema. RESPIRATORY: No cough, shortness of breath, congestion, or wheezing. GASTROINTESTINAL: No abdominal pain, nausea, vomiting, bloody stools or diarrhea. GENITOURINARY: No dysuria. MUSCULOSKELETAL: No joint pain or swelling. Positive for neck pain. LYMPHATIC: No swollen glands. NEUROLOGIC: No seizures. No headache, focal weakness or sensory changes. HEMATOLOGIC: No unusual bruising or bleeding. Physical Exam - Vital signs Vitals: Temp Pulse Resp BP Pulse Ox 98.3 F 96 16 110/87 H 100 09/12/20 14:08 09/12/20 14:08 09/12/20 14:08 09/12/20 14:08 09/12/20 14:08 - General General appearance: Appears well Notes: VITAL SIGNS: Within normal limits. GENERAL: No acute distress, non-toxic appearance. HEAD: Normal with no signs of head trauma. Tiny circular flat meza colored area near the right brow bone, nontender EYES: EOMI, conjunctiva normal, no discharge. EARS: Hearing grossly intact. NOSE: Normal. NECK: Normal range of motion, no tenderness, supple, no lymphadenopathy, No adenopathy, no JVD. Nontender to palpation. CHEST: Clear breath sounds bilaterally. No wheezes, rales, or rhonchi. CARDIAC: Regular rate and rhythm. S1 and S2, without murmurs, gallops, or rubs. VASCULAR: No Edema. Peripheral pulses normal and equal in upper extremities. ABDOMEN: Normal and soft with no tenderness, no masses or pulsatile masses. LYMPATHTIC: No lymphadenopathy noted. MUSCULOSKELETAL: Good range of motion of all major joints. Extremities without clubbing, cyanosis or edema. NEUROLOGICAL: Alert and oriented x 3. No focal sensory or strength deficits. Speech normal. Follows commands appropriately. PSYCHIATRIC: Normal Affect, judgement and mood. SKIN: Normal appearance with no rashes or lesions. Course - Re-evaluation Re-evalutation: 09/12/20 20:25 States she was upset in triage because she thought she had a blood clot in her neck. I spent a long time talking with her and her fianc. She has no risk factors for blood clot. She does not take control. On exam, she has strong pulses. She is nontender to palpation of the neck. I do not palpate an obvious goiter. I am unsure of the etiology of the small spot on her right eyebrow. It has been there chronically and has not caused any issues. I also discussed the etiology of her neck pain. It has also been there for many years intermittently. Possibly, this could be muscular as it is worse with neck rotation. She has no neck rigidity or meningismus. I did offer patient a full work-up including CAT scans if she is uncomfortable. Patient states she would rather follow-up outpatient. She does not want any medications. She is very agreeable to the plan for follow-up. She does not want any further testing in the ER. Return precautions provided. - Vital Signs Vital signs: Temp Pulse Resp BP Pulse Ox 98.3 F 72 16 117/71 99 09/12/20 14:08 09/12/20 18:20 09/12/20 18:20 09/12/20 18:20 09/12/20 18:20 Discharge - Discharge Clinical Impression: Neck pain on left side Condition: Stable Disposition: HOME, SELF-CARE Instructions: Neck Injury (Cervical Strain) ([facility]) Additional Instructions: Please follow-up with your family doctor. You may take Tylenol or ibuprofen for pain. Please return to the ER immediately for any weakness, numbness, pain, any other concerning symptoms. Referrals: CÉSAR FERRER DO [Primary Care Provider] - Follow up in 3-5 days
[2020-09-12 18:21] VITALS: BP 117/71
== END 2020-09-12 18:22 | disposition home or self-care (01) ==
LOC: ER 13:09
DX: M54.2 Cervicalgia (principal); M79.602 Pain in left arm; Z79.899 Other long term (current) drug therapy
CPT/HCPCS: 99282